=== PATIENT | male | born 1945 | race Caucasian/White ===

== ENCOUNTER → 2017-01-13 | Outpatient (CLI) | payer OTHER ==
[~2017-01-13] VITALS: Ht 185.4 cm; Wt 106.8 kg
[~2017-01-13] MED LIST: AMBIEN 10 MG TA10 MG PO; AMLODIPINE BESY10 MG PO; APAP500 PO; ATENOLOL-CHLOR1 EACH PO; BAYER CHEWABLE81 MG PO; COLACE 100 MG100 MG PO; DICLOFENAC SOD50 MG PO; FLEXERIL PO; HTN MED PO; HYDROCODON-ACE1 EAC7 PO; LEVITRA20 MG PO; LEVOTHYROXINE 0.1 MG PO; LEVOTHYROXINE0.05 MG PO; MEDROLDOSEPACK PO; MOBIC15 MG PO; NABUMETONE 500500 M1 PO; NEURONTIN 300300 M1 PO; NORCO 5-325 TA1 EACH PO; NORVASC10 MG PO; PERCOCET 5-3251 EACH PO; ROBAXIN 750 MG750 M1 PO; SIMVASTATIN20 MG PO; VITAMIN D1000 UNI1 PO; VITAMIN D3400 UNI2 PO
--- NOTE | ~2017-01-13 | HPC ---
[facility] [place] [address] PAIN MANAGEMENT CONSULTATION Name: LETTY FLORES Room #: [facility]#: [id number] Admission: 01/13/17 Attend Phys: Herbert Cordero DO Discharge: Date of : 45 Report #: [id number] THIS REPORT FOR: //name// CC: Salinas Espinoza MD DATE OF SERVICE: 01/13/2017 REFERRING PHYSICIAN: Carlos Espinoza MD CHIEF COMPLAINT: Low back pain, right lower extremity pain with paresthesias. HISTORY OF PRESENT ILLNESS: As you know, the patient is a 71-year-old male referred to our service for epidural injections under fluoroscopic guidance to address lumbar radicular symptoms. The patient as you are aware had undergone surgery in the past, but did not see significant pain improvement after a couple of months. He returned to his neurosurgeon who then referred the patient to our clinic for epidurals. He has been undergoing periodic epidural injections with improvement in symptoms. He is placing today's pain at a level of 2-3/10 while sitting and 9/10 while standing, exacerbated with activities, improved with seated position. He returns today requesting epidural injection under fluoroscopic guidance. ALLERGIES: No known drug allergies. CURRENT MEDICATIONS: Acetaminophen, aspirin, levothyroxine, cholecalciferol, Meloxicam, amlodipine, atenolol, chlorthalidone, and simvastatin. SOCIAL HISTORY: The patient denies tobacco, alcohol or IV or illicit drug use. He is retired, working periodically, unaccompanied. IMAGING: No new imaging available. PHYSICAL EXAMINATION: VITAL SIGNS: Blood pressure 122/71, pulse 78, respiratory rate 18 and unlabored, the patient is 97% on room air, height 6 feet 1 inch tall, weight 235.4 pounds, and BMI calculated 31.1. GENERAL: Well-developed, well-nourished, well-hydrated 71-year-old male, appearing stated age, placing current pain score 2-3/10 in seated position and 9 standing. EXTREMITIES: Show no clubbing, no cyanosis, and no edema. MUSCULOSKELETAL: Seated straight leg raising negative. Supine straight leg raising positive. Fabere's test negative. Gait is antalgic favoring right lower extremity over left. [address] [address] PAIN MANAGEMENT CONSULTATION Name: TRINILETTY CARBAJAL Room #: [facility]#: [id number] Admission: 01/13/17 Attend Phys: Herbert Cordero DO Discharge: Date of : 45 Report #: [id number] ASSESSMENT: 1. Symptomatic lumbar radiculopathy. 2. Progressively worsening spinal stenosis of lumbar spine. 3. Displacement of lumbar intervertebral disk with radiculopathy. 4. Lumbosacral spondylosis with radiculopathy. 5. Lumbar degeneration. 6. Chronic intractable pain. PLAN: 1. The patient returns today in followup visit requesting to undergo the next in a series of epidural injections under fluoroscopic guidance. The patient notes good analgesic benefit with epidural injections and is hopeful to see similar improvements today. We have advised the patient of the risks and benefits of the procedure, states he understood and wished to proceed. 2. No medication changes were made at today's visit. The patient to continue current medical therapy as previously prescribed. 3. The patient to return to our clinic on an as needed basis for possible repeat epidural injection. PROCEDURE NOTE DESCRIPTION OF PROCEDURE: Lumbar epidural steroid injection under fluoroscopic guidance. This is the second procedure of the second series that the patient is undergoing. After obtaining written consent, the patient was taken back to the fluoroscopy suite, placed in a prone position with pillow under the abdomen to decrease lumbar lordosis. The skin overlying the lumbosacral area was then prepped and draped in aseptic fashion. The lumbar vertebral interspace was then identified by AP fluoroscopy. The skin and subcutaneous tissue overlying the target site of injection was anesthetized with 3 mL 1% lidocaine. A 20-gauge 3-1/2-inch Tuohy needle was then advanced under fluoroscopic guidance towards the epidural space using a right paramedian approach. The epidural space was identified using loss of resistance to air technique. After negative aspiration for heme or cerebrospinal fluid, a total of 1 mL of Omnipaque was injected. A lumbar epidurogram was confirmed using both AP and lateral fluoroscopy. After negative aspiration for heme or cerebrospinal fluid, 5 mL of a solution containing 2 mL 40 mg per mL, 80 mg total triamcinolone and 3 mL of lidocaine 1% was injected in increments. Contrast spread was noted posterior epidural space. The needle was then retracted approximately half way and needle tract flushed with 1 mL of 1% lidocaine. Needle was then removed. There were no apparent sensory or motor deficits in the lower extremity following the procedure. A sterile bandage was placed over the injection site. [facility] [address] [place] [address] PAIN MANAGEMENT CONSULTATION Name: LETTY FLORES Room #: [facility]#: [id number] Admission: 01/13/17 Attend Phys: Herbert Cordero DO Discharge: Date of : 45 Report #: [id number] The heart rate, pulse, oximetry and blood pressure were continuously monitored after the procedure. There were no apparent complications. The patient tolerated the procedure well and was carefully escorted to the recovery room in stable condition. There were no apparent complications. After meeting discharge criteria, the patient was then discharged home. By: [id number] Herbert Cordero DO /nt
[2017-01-13 08:42] VITALS: BP 122/71
== END | disposition home or self-care (01) ==
LOC: PAIN 07:14
DX: M54.16 Radiculopathy, lumbar region (principal); M48.06 Spinal stenosis, lumbar region; M51.16 Intervertebral disc disorders with radiculopathy, lumbar region; M47.27 Other spondylosis with radiculopathy, lumbosacral region; G31.89 Other specified degenerative diseases of nervous system

== ENCOUNTER → 2017-04-28 | Outpatient (CLI) | payer OTHER ==
[~2017-04-28] VITALS: Ht 182.9 cm; Wt 104.6 kg
[~2017-04-28] MED LIST changes: +ATORVASTATIN CA40 MG PO; +FISH OIL 1,001000 M2 PO; +HYDROCODONE-AP1 EA11 PO; +UNICOMPLEX M TA1 TA1 PO
[2017-04-28 08:47] VITALS: BP 108/70
== END | disposition home or self-care (01) ==
LOC: PAIN 07:21
DX: M54.16 Radiculopathy, lumbar region (principal); M48.06 Spinal stenosis, lumbar region; M51.26 Other intervertebral disc displacement, lumbar region; M47.27 Other spondylosis with radiculopathy, lumbosacral region; M51.36 Other intervertebral disc degeneration, lumbar region; G89.29 Other chronic pain

== ENCOUNTER → 2017-04-29 | Outpatient (CLI) | payer OTHER | LOC: MRI 07:25 | DX: M47.896 Other spondylosis, lumbar region (principal); M54.16 Radiculopathy, lumbar region ==

== ENCOUNTER → 2017-05-04 | Outpatient (CLI) | payer OTHER ==
[~2017-05-04] VITALS: Ht 182.9 cm; Wt 105.1 kg
[~2017-05-04] MED LIST changes: +ONDANSETRON HCL4 M2 PO; +TRAMADOL 50 MG50 MG PO
[2017-05-04 08:42] VITALS: BP 112/73
== END | disposition home or self-care (01) ==
LOC: PAIN 07:08
DX: M54.16 Radiculopathy, lumbar region (principal); G89.29 Other chronic pain; R11.0 Nausea; Z79.82 Long term (current) use of aspirin; Z79.899 Other long term (current) drug therapy; Z98.890 Other specified postprocedural states

== ENCOUNTER → 2017-06-22 | Outpatient (CLI) | payer OTHER ==
[~2017-06-22] VITALS: Ht 182.9 cm; Wt 107.1 kg
[~2017-06-22] MED LIST changes: +NORCO 7.5-3251 EACH PO
--- NOTE | ~2017-06-22 | HPC ---
[facility] [place] [address] PAIN MANAGEMENT CONSULTATION Name: LETTY FLORES [id number] Admission: 06/22/17 Attend Phys: Herbert Cordero DO Discharge: Date of : 45 Report #: [id number] THIS REPORT FOR: //name// CC: Salinas ESPINOZA MD DATE OF SERVICE: 06/22/2017 CHIEF COMPLAINT: Low back pain, bilateral lower extremity pain and paresthesias. HISTORY OF PRESENT ILLNESS: As you know, the patient is a 71-year-old male who returns today in followup visit indicating he is undergoing surgery with Dr. Carlos Espinoza on July 05. He returns today for refill of medications. He is reporting increasing nausea that he notes with increasing pain issues. He feels that the hydrocodone is working beneficially for pain control and wishes to continue this therapy until which time he can undergo surgery and begin weaning from the medications themselves. He indicates today pain level of 8-9/10; states pain is sharp, burning, numbness, tingling and weakness; exacerbated with walking, standing and climbing steps; improves with lying down and medications. He returns today in followup visit for medication management. ALLERGIES: No known drug allergies. CURRENT MEDICATIONS: Ondansetron, multivitamin, docusate sodium, atorvastatin, zolpidem, cholecalciferol, aspirin, levothyroxine, meloxicam, amlodipine, atenolol, hydrochlorothiazide, hydrocodone. IMAGING: No new imaging available. PHYSICAL EXAMINATION: VITAL SIGNS: Blood pressure 118/75, pulse is 72, respiratory rate 14 unlabored. The patient is 97% on room air, height 6 feet tall, weight 263.2 pounds, BMI calculated 32. GENERAL: Well-developed, well-nourished, well-hydrated 71-year-old male who appears in moderate distress secondary to pain, placing current pain score at 8-9/10. HEENT: Normocephalic, atraumatic. Pupils equal, round, reactive to light. Extraocular muscles are intact. Sclerae nonicteric without injection. NEUROLOGIC: Cranial nerves 2-12 grossly intact. Speech fluent. EXTREMITIES: Show no clubbing, no cyanosis, no edema. MUSCULOSKELETAL: Seated straight leg raising positive, supine straight leg raising positive. FLASH test negative. Modified Gaenslen's positive for axial low back pain. [address] [address] PAIN MANAGEMENT CONSULTATION Name: LETTY FLORES [facility] [id number] Admission: 06/22/17 Attend Phys: Herbert Cordero DO Discharge: Date of : 45 Report #: [id number] ASSESSMENT: 1. Symptomatic lumbar radiculopathy. 2. Spinal stenosis, lumbar spine. 3. Displacement of lumbar intervertebral disk with radiculopathy. 4. Lumbosacral spondylosis with radiculopathy. 5. Lumbar degeneration. 6. Chronic intractable pain. PLAN: 1. The patient has returned today in followup visit requesting refill on medications. He states that he has plans to undergo surgery with Dr. Carlos Espinoza on 07/05/2017 to address his spinal stenosis and findings at the L4-L5 level. The patient is requesting refill on medications to reach his surgical timeframe. He does indicate that his pain has led to increasing nausea. He believes that as his pain intensifies his nausea does as well. He has returned to discuss options for treatment in regards to this issue. 2. Recommend the patient utilize hydrocodone 7.5/325 one tab every 8 hours p.r.n. for pain. This has appeared to be working well in the past, we are hopeful this will hold the patient from a pain standpoint until the surgery 13 days from today. We have given the patient enough medication to reach his surgical time, #120, this should hold the patient well beyond his surgery. 3. We wish to thank Dr. Espinoza for the referral of this patient to our clinic back in 2012. We will be releasing his care back to Dr. Espinoza's service for his surgery. Again, we wish to thank each of the physicians involved in this patient's case for the referral of the patient to our clinic. By: [id number] Herbert Cordero DO /nt
[2017-06-22 10:00] VITALS: BP 118/75
== END | disposition home or self-care (01) ==
LOC: PAIN 06:26
DX: Z76.0 Encounter for issue of repeat prescription (principal); M51.16 Intervertebral disc disorders with radiculopathy, lumbar region; M48.06 Spinal stenosis, lumbar region; M47.27 Other spondylosis with radiculopathy, lumbosacral region; G89.29 Other chronic pain; Z79.899 Other long term (current) drug therapy; Z79.82 Long term (current) use of aspirin